=== PATIENT | female | born 1990 | race Caucasian/White ===

== ENCOUNTER 2017-04-18 13:46 | Emergency (ER) | payer OTHER ==
[~2017-04-18] VITALS: Ht 157.5 cm; Wt 60.1 kg
[~2017-04-18 13:46] MED LIST: LEVA750T PO; NAPR500 PO
[2017-04-18 13:51] VITALS: BP 117/58; PULSE 82; RESP 16; TEMP 99; O2SAT 99
[2017-04-18 14:21] LABS: BLOOD, URINE NEG (NEG); GLUCOSE,URINE NEG (NEG); KETONE, URINE NEG (NEG); NITRITE,URINE NEG (NEG)
[2017-04-18 14:29] LABS: METHOD OF COLLECTION CLEAN CATCH
[2017-04-18 14:30] LABS: COMMENT (UR) CULT NOT INDICATED; CULTURE IF INDICATED CULT NOT INDICATED; SQUAMOUS EPITHELIAL CELL URINE 0-5 /hpf (0-5); URINE COLOR YELLOW (YELLW/STRAW)
[2017-04-18 14:44] LABS: AUTOMATED NEUTROPHIL # 3.6 TH/MM3 (1.8-7.7); BASOPHIL % 0.4 % (0.0-2.0); EOSINOPHIL # 0.1 TH/MM3 (0-0.4); EOSINOPHIL % 1.6 % (0.0-4.0); HEMATOCRIT 40.2 % (35.0-46.0); HEMO FLAGS DIFF FINAL; LYMPH % 35.6 % (9.0-44.0); LYMPHOCYTE # 2.5 TH/MM3 (1.0-4.8); MEAN CELL VOLUME 77.5 FL (80.0-100.0); MEAN CORPUSCULAR HEMOGLOBIN 25.6 PG (27.0-34.0); MEAN CORPUSCULAR HGB CONC 33.1 % (32.0-36.0); MONO % 9.6 % (0.0-8.0); NEUT % 52.8 % (16.0-70.0); PLATELET COUNT 221 TH/MM3 (150-450); RED BLOOD COUNT 5.18 MIL/MM3 (4.00-5.30); RED CELL DISTRIBUTION WIDTH 12.5 % (11.6-17.2); WHITE BLOOD COUNT 6.9 TH/MM3 (4.0-11.0)
--- NOTE | 2017-04-18 14:51 | PD ---
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 She denies any fevers or chills. She has had one sexual partner in the past 6 months. She says she's not recently been tested for STDs. PFSH Past Medical History Cancer: No Cardiovascular Problems: No Diabetes: No Diminished Hearing: No Genitourinary: Yes (pyelonephritis) Psychiatric: No Immunizations Current: No Migraines: Yes Seizures: No Thyroid Disease: No Ulcer: No ?: Not LMP: 03/29/17 : 1 Para: 0 : 1 Past Surgical History Other Surgery: No Social History Alcohol Use: No Tobacco Use: Yes (2 CIG/MONTH) Substance Use: No Allergies-Medications (Allergen,Severity, Reaction): Coded Allergies: No Known Allergies (Verified , 04/18/17) Reported Meds & Prescriptions Reported Meds & Active Scripts Active No Active Prescriptions or Reported Medications Review of Systems Except as stated in HPI: all other systems reviewed are Neg Physical Exam Narrative GENERAL:Well appearing, no acute distress SKIN: Focused skin assessment warm and dry. HEAD: Atraumatic. Normocephalic. EYES: Pupils equal and round. No injection or drainage. ENT: Moist mucous membranes NECK: Trachea midline. CARDIOVASCULAR: Regular rate and rhythm. No murmur appreciated. RESPIRATORY: Clear to auscultation. Breath sounds equal bilaterally. GASTROINTESTINAL: Abdomen soft, non-tender, nondistended. 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 NEUROLOGICAL: Awake and alert. No obvious cranial nerve deficits. Moving all extremities. PSYCHIATRIC: Appropriate mood and affect; insight and judgment normal. Data Data Last Documented VS Vital Signs Date Time Temp Pulse Resp B/P (MAP) Pulse Ox O2 Delivery O2 Flow Rate FiO2 04/18/17 13:51 99.0 82 16 117/58 (77) 99 Orders Orders Urinalysis - C+S If Indicated (04/18/17 14:11) Complete Blood Count With Diff (04/18/17 14:17) Comprehensive Metabolic Panel (04/18/17 14:17) Beta Hcg (Quant/Titer) (04/18/17 14:17) Us Pelvis Comp W Transvaginal (04/18/17 ) Wet Prep Profile (04/18/17 14:18) Gc And Chlamydia Pcr (04/18/17 14:18) Rocephin 250mg Vial Im X 1 (04/18/17 15:30) Lidocaine 1% Inj (50 Ml) (Xylocaine 1% I (04/18/17 15:30) Labs Laboratory Tests Test 04/18/17 14:19 04/18/17 14:30 Urine Collection Type CLEAN CATCH Urine Color YELLOW Urine Turbidity CLEAR Urine pH 6.0 Urine Specific [place] 1.024 Urine Protein NEG mg/dL Urine Glucose (UA) NEG mg/dL Urine Ketones NEG mg/dL Urine Occult Blood NEG Urine Nitrite NEG Urine Bilirubin NEG Urine Leukocyte Esterase SMALL Urine WBC 3-5 /hpf Urine Squamous Epithelial Cells 0-5 /hpf Microscopic Urinalysis Comment CULT NOT INDICATED Urine Collection Time 14:19 White Blood Count 6.9 TH/MM3 Red Blood Count 5.18 MIL/MM3 Hemoglobin 13.3 GM/DL Hematocrit 40.2 % Mean Corpuscular Volume 77.5 FL Mean Corpuscular Hemoglobin 25.6 PG Mean Corpuscular Hemoglobin Concent 33.1 % Red Cell Distribution Width 12.5 % Platelet Count 221 TH/MM3 Mean Platelet Volume 9.3 FL Neutrophils (%) (Auto) 52.8 % Lymphocytes (%) (Auto) 35.6 % Monocytes (%) (Auto) 9.6 % Eosinophils (%) (Auto) 1.6 % Basophils (%) (Auto) 0.4 % Neutrophils # (Auto) 3.6 TH/MM3 Lymphocytes # (Auto) 2.5 TH/MM3 Monocytes # (Auto) 0.7 TH/MM3 Eosinophils # (Auto) 0.1 TH/MM3 Basophils # (Auto) 0.0 TH/MM3 CBC Comment DIFF FINAL Differential Comment Clue Cells (Wet Prep) NONE SEEN Vaginal Trichomonas (Wet Prep) NONE SEEN Vaginal Yeast (Wet Prep) NONE SEEN Blood Urea Nitrogen 10 MG/DL Creatinine 0.63 MG/DL Random Glucose 81 MG/DL Total Protein 7.5 GM/DL Albumin 4.0 GM/DL Calcium Level 9.0 MG/DL Alkaline Phosphatase 49 U/L Aspartate Amino Transf (AST/SGOT) 27 U/L Alanine Aminotransferase (ALT/SGPT) 31 U/L Total Bilirubin 0.4 MG/DL Sodium Level 137 MEQ/L Potassium Level 4.3 MEQ/L Chloride Level 107 MEQ/L Carbon Dioxide Level 24.6 MEQ/L Anion Gap 5 MEQ/L Estimat Glomerular Filtration Rate 112 ML/MIN Human Chorionic Gonadotropin, Quant LESS THAN 1 MIU/ML MDM Medical Decision Making Medical Screen Exam Complete: Yes Emergency Medical Condition: Yes Interpretation(s) Afebrile, no tachycardia, normotensive No leukocytosis Electrolytes are reassuring HCG is negative Urinalysis is negative for infection Wet prep is negative for Trichomonas Ultrasound demonstrates a thickened endometrial stripe but is otherwise normal. Differential Diagnosis Endometritis, retained products of conception, pelvic inflammatory disease, cervicitis, vaginosis Narrative Course This is a 27-year-old female who presents to the emergency department with vaginal discharge and abdominal discomfort. Patient did have a recent surgical 2 months ago. Ultrasound was obtained which demonstrates no retained products. Pelvic exam demonstrates an exam consistent with pelvic inflammatory disease. I suspect she has a sexually transmitted disease. I doubt this is endometritis as she is a full 2 months out from her procedure. Labs are obtained which are reassuring and she is afebrile. She is given a dose of Rocephin and will be discharged home on doxycycline to follow-up with the [facility] for woman's care. Diagnosis Primary Impression: Pelvic inflammatory disease (PID) Patient Instructions: General Instructions Additional Instructions: If you develop fever, chills, severe abdominal pain, persistent vomiting or inability to eat return to the emergency department. Your pelvic exam today did not include a Pap smear. It is important to followup with a radial router operator on a yearly basis to be tested for cervical cancer as we do not do that from the emergency department. If there is a concern that you have sexually transmitted disease, your partner should be tested. You should followup with your radial router operator or with the health department to get tested for other sexually transmitted diseases like HIV and syphilis, as we do not test for these in the emergency department Med/Other Pt SpecificInfo: Prescription(s) given Scripts Doxycycline Hyclate (Doxycycline Hyclate) 100 Mg Cap 100 MG PO BID for Infection, #28 CAP 0 Refills Prov: Coleen Hylton MD 04/18/17 Disposition: 01 DISCHARGE HOME Condition: Stable Coleen Hylton MD Apr 18, 2017 14:51
[2017-04-18 15:03] LABS: CHLORIDE 107 MEQ/L (98-107); POTASSIUM 4.3 MEQ/L (3.5-5.1); SODIUM (NA) 137 MEQ/L (136-145)
[2017-04-18 15:06] LABS: ANION GAP 5 MEQ/L (5-15); BICARBONATE 24.6 MEQ/L (21.0-32.0); BLOOD UREA NITROGEN 10 MG/DL (7-18)
[2017-04-18 15:09] LABS: ALT (GPT) 31 U/L (10-53); AST (GOT) 27 U/L (15-37); GLOMERULAR FILTRATION RATE 112 ML/MIN (>89)
[2017-04-18 15:11] LABS: TOTAL BILIRUBIN ADULT 0.4 MG/DL (0.2-1.0)
[2017-04-18 15:12] LABS: ALKALINE PHOSPHATASE 49 U/L (45-117)
[2017-04-18 15:14] LABS: BETA HCG QUANT LESS THAN 1 MIU/ML (0-5)
--- NOTE | 2017-04-18 15:17 | RADRPT ---
EXAM DATE/TIME: 04/18/2017 14:34 [facility] COMPARISON: US PELVIS COMP W/TRANSVAGINAL, May 04, 2015, 8:15. INDICATIONS : Pelvic pain. MEDICAL HISTORY : Pyelonephritis. Migraines. Tobacco use. SURGICAL HISTORY : None. ENCOUNTER: Initial ACUITY: 2 weeks PAIN SCORE: 5/10 LOCATION: Bilateral pelvis MEASUREMENTS: UTERUS: 8.8 x 5.0 x 4.7 cm ENDOMETRIAL STRIPE: >20 mm RIGHT OVARY: 4.3 x 3.4 x 3.2 cm LEFT OVARY: 3.2 x 2.0 x 1.2 cm FINDINGS: Endometrial stripe is thickened to 1.5 cm. The right ovary demonstrates a 2.7 cm cyst. The left ovary appears normal. No adnexal masses are identified. A small amount of fluid is present within the pelv is within the physiologic range. CONCLUSION: 1. Thickening of endometrial stripe of uncertain significance. No adnexal masses identified Jeevan Byers MD on April 18, 2017 at 15:14 Board Certified Radiologist. This report was verified electronically.
[2017-04-18 15:25] VITALS: BP 90/57; PULSE 78; RESP 16; O2SAT 98
[2017-04-18] MEDS ORDERED: DOXY100C PO (15:28)
[2017-04-18] MEDS ORDERED: cefTRIAXone 250 MG VIAL IM ONE ×2 (15:30→15:45)
[2017-04-18] MEDS ORDERED: LIDOCAINE HCL 1% 50 ML VIAL IM ONE ×2 (15:30→15:45)
[2017-04-18] MEDS ORDERED: cefTRIAXone INJ 1,000 MG in SODIUM CHLORIDE 0.9% INJ 100 ML IV ONE (15:45)
[2017-04-18 16:15] VITALS: BP 99/65
[2017-04-18 19:16] LABS: CHLAMYDIA PCR NOT DETECTED (NOT DETECT); NEISSERIA PCR NOT DETECTED (NOT DETECT)
== END 2017-04-18 16:20 | disposition home or self-care (01) ==
LOC: PHED 13:46
DX: N73.9 Female pelvic inflammatory disease, unspecified (principal); R10.2 Pelvic and perineal pain
CPT/HCPCS: 76830; 76856; 80053; 81001; 84702; 85025; 87210; 87491; 87591; 96372; 99285; J0696